=== PATIENT | male | born 1990 | race Caucasian/White ===

== ENCOUNTER 2017-06-23 16:27 | Emergency (ER) | payer SELFPAY ==
--- NOTE | 2017-06-23 16:39 | ER Report ---
History and Physical Time Seen By MD: 16:39 HPI/ROS CHIEF COMPLAINT: Left knee pain HISTORY OF PRESENT ILLNESS: 26-year-old male patient presents to emergency room with complaint of left knee pain. Patient states that he was at work today, he was bending down to plug in an extension cord when his left foot slipped. He states that his leg shifted laterally. He states that he heard a popping sound. He does have significant amounts of pain to the medial aspect of the left knee. There is no bruising or swelling, patient states he did take 600 mg of ibuprofen for pain. He did apply some ice. He states pain is pretty significant. She is sitting type of movement of the knee is with the pain worse. He denies any previous injury to the knee. REVIEW OF SYSTEMS: Respiratory: No cough, no dyspnea. Cardiovascular: No chest pain, no palpitations. Gastrointestinal: No vomiting, no abdominal pain. Musculoskeletal: As noted above Allergies: Coded Allergies: Penicillins (Verified Allergy, Unknown, 06/23/17) diphenhydramine (Verified Allergy, Unknown, 06/23/17) morphine (Verified Allergy, Unknown, 06/23/17) Home Meds Active Scripts Hydrocodone Bit/Acetaminophen (HYDROCODON-ACETAMINOPHEN 5-325) 1 Each Tablet, 1 EACH PO Q4-6H Y for PAIN, #12 TAB Prov:APRILDAVID FNP 06/23/17 Past Medical/Surgical History Patient has a past medical history of DVT. Patient has a surgical history of tonsillectomy, tubes in ears. Patient has a family medical history of cancer. Reviewed Nurses Notes: Yes Constitutional Vital Sign - Last 24 Hours 06/23/17 06/23/17 06/23/17 06/23/17 16:35 16:37 16:42 16:57 Temp 98.2 Pulse 93 90 85 Resp 22 B/P (MAP) 145/88 (107) 145/88 Pulse Ox 94 95 94 O2 Delivery Room Air 06/23/17 06/23/17 06/23/17 17:00 17:30 17:35 B/P (MAP) 128/105 (113) 141/84 (103) Pulse Ox 94 Physical Exam General Appearance: The patient is alert, has no immediate need for airway protection and no current signs of toxicity. Respiratory: Chest is non tender, lungs are clear to auscultation. Cardiac: regular rate and rhythm Musculoskeletal: Neck: Neck is supple and non tender. Patient has tenderness to the medial aspect of the right knee, seems to be along the joint line. Patient also has tenderness to the posterior aspect of the knee. Patient has no bruising or swelling noted. Patient has good sensation to the foot. Does have increasing pain with plantar flexion and dorsiflexion. Skin: No rashes or lesions. DIFFERENTIAL DIAGNOSIS: After history and physical exam differential diagnosis was considered for tibial plateau fracture, knee sprain, ligamentous injury, meniscal tear. Medical Decision Making EKG/Imaging Imaging INDICATION: knee pain. DATE: 06/23/2017 5:13 PM. TECHNIQUE: KNEE 4 VIEW LEFT COMPARISON: None FINDINGS: Normal alignment. No significant degenerative findings. No fracture. No effusion. IMPRESSION: Radiographically normal. Report Dictated By: Sahil Dickerson MD at 06/23/2017 5:13 PM Report E-Signed By: Sahil Dickerson MD at 06/23/2017 5:14 PM ED Course/Re-evaluation ED Course Patient was admitted to exam room, history and physical were obtained. Differential diagnoses were considered. On examination patient has tenderness to the medial aspect of the left knee. X-ray was done of the left knee which showed no acute osseous abnormalities. I discussed findings with patient. I do have concerns with a possible MCL sprain, MCL tear versus meniscal tear. I discussed this with patient. As result would like him to follow-up with orthopedics. I will place the patient in a knee immobilizer. He will also receive a limited supply of pain medication. He is to ice his knee, limit his activity by pain. He is to follow-up with orthopedics. I did give him information for primary [facility] here in [place]. Patient is from [place] and may want to return there for definitive care. I informed him that is fine, I recommend that he call tomorrow to make an appointment. Patient verbalized understanding and agreement with plan. Decision to Disposition Date: Jun 23, 2017 Decision to Disposition Time: 17:26 Depart Departure Latest Vital Signs Vital Signs Date Time Temp Pulse Resp B/P (MAP) Pulse Ox O2 Delivery O2 Flow Rate FiO2 06/23/17 17:35 94 06/23/17 17:30 141/84 (103) 06/23/17 16:57 85 06/23/17 16:37 98.2 22 Room Air Impression: Primary Impression: Knee sprain Condition: Improved Disposition: HOME OR SELF-CARE Referrals: LUZMA MORFIN MD New Scripts Hydrocodone Bit/Acetaminophen (HYDROCODON-ACETAMINOPHEN 5-325) 1 Each Tablet 1 EACH PO Q4-6H Y for PAIN, #12 TAB Prov: DAVID CHEN 06/23/17 Patient Instructions: Knee Sprain (ED) Additional Instructions: Ice the knee 2-3 times a day for 10-15 minutes. Wear the knee immobilizer when active, you may take it off to shower, sleep and when you are not moving around. You may take Ibuprofen in addition to the pain medication as needed for pain. Limit activity by pain. Follow up with [facility], call tomorrow to make an appointment. Return to the ER if condition worsens. Problem Qualifiers Primary Impression: Knee sprain Encounter type: initial encounter Involved ligament of knee: unspecified ligament Laterality: left Qualified Codes: S83.92XA - Sprain of unspecified site of left knee, initial encounter DAVID CHEN Jun 23, 2017 16:39
[2017-06-23] MEDS ORDERED: APAP/HYDROCODONE 325/5 TAB PO ONE (17:05)
--- NOTE | 2017-06-23 17:19 | RADIOLOGY IMAGING REPORT ---
FACILITY: [facility] PATIENT NAME: Sunny Spence : 1990 MR: [id number] V: [id number] EXAM DATE: ORDERING PHYSICIAN: DAVID CHEN TECHNOLOGIST: [place] [facility] [place] Sunny Spence : 1990 Visit/Account:[id number] Date of Sevice: 06/23/2017 INDICATION: knee pain. DATE: 06/23/2017 5:13 PM. TECHNIQUE: KNEE 4 VIEW LEFT COMPARISON: None FINDINGS: Normal alignment. No significant degenerative findings. No fracture. No effusion. IMPRESSION: Radiographically normal. Report Dictated By: Sahil Dickerson MD at 06/23/2017 5:13 PM Report E-Signed By: Sahil Dickerson MD at 06/23/2017 5:14 PM WSN:[id number]
[2017-06-23] MEDS ORDERED: HYDR-385 PO (17:24)
[2017-06-23 17:30] VITALS: BP 141/84
== END 2017-06-23 17:55 | disposition home or self-care (01) ==
LOC: ER 16:31
DX: S83.92XA Sprain of unspecified site of left knee, initial encounter (principal)
CPT/HCPCS: 73564; 99283; L1830